=== PATIENT | male | born 1970 | race African-American/Black ===

== ENCOUNTER 2017-10-27 17:24 | Emergency (ER) | payer MEDICAID ==
[~2017-10-27] VITALS: Ht 180.3 cm; Wt 70.0 kg
[2017-10-27 18:25] VITALS: BP 109/62
== END 2017-10-27 21:42 | disposition left against medical advice (07) ==
LOC: ER 21:06
DX: S69.91XA Unspecified injury of right wrist, hand and finger(s), initial encounter (principal); X58.XXXA Exposure to other specified factors, initial encounter; Y93.89 Activity, other specified; Y92.89 Other specified places as the place of occurrence of the external cause; Y99.8 Other external cause status
CPT/HCPCS: 99281